=== PATIENT | female | born 1945 | race Caucasian/White ===

== ENCOUNTER 2018-06-01 19:40 | Emergency (ER) | payer OTHER, MEDICARE ==
[~2018-06-01] VITALS: Ht 165.1 cm; Wt 105.0 kg
[~2018-06-01 19:40] MED LIST: ASPIR 8181 M1 PO; ATORVASTATIN CA40 MG PO; LISINOPRIL40 MG PO; ZITHROMAX Z-PA250 MG PO
[2018-06-01 21:13] LABS: HEMATOCRIT 38.6 % (36.0-46.0); MCH 31.3 PG (29.0-34.0); MCHC 33.7 G/DL (30.0-36.0); PLATELET COUNT 236 K/uL (156-360); RBC DIS.WIDTH-CV 12.7 % (11.8-14.6); RBC DIS.WIDTH-SD 43.3 % (39-53); RED BLOOD COUNT 4.15 M/uL (3.80-5.20); WHITE BLOOD COUNT 10.2 K/uL (4.1-10.2)
[2018-06-01 21:22] LABS: CHLORIDE 107 mEq/L (99-109); POTASSIUM 4.6 mEq/L (3.7-5.4); SODIUM 144 mEq/L (136-147)
[2018-06-01 21:24] LABS: GLUCOSE 153 mg/dL (70-99)
[2018-06-01 21:28] LABS: CREATININE 0.8 mg/dL (0.6-1.3); GFR ESTIMATE (CALCULATED) > 59 mL/min/
[2018-06-01 21:29] LABS: UREA NITROGEN (BUN) 15 mg/dL (9-23)
[2018-06-01 21:37] LABS: TROP-I INTERPRETATION NEGATIVE; TROPONIN-I < 0.01 ng/mL (0.0-0.30)
[2018-06-01] MEDS ORDERED: CEFTIN250 MG PO (21:43)
[2018-06-01 22:06] VITALS: BP 140/58
== END 2018-06-01 22:11 | disposition home or self-care (01) ==
LOC: EME 19:40
DX: R00.2 Palpitations (principal); H66.91 Otitis media, unspecified, right ear; R06.02 Shortness of breath; R60.0 Localized edema; R05 Cough; Z79.82 Long term (current) use of aspirin
CPT/HCPCS: 71046; 80048; 84484; 85027; 93005